=== PATIENT | male | born 1995 | race Caucasian/White ===

== ENCOUNTER 2024-05-10 19:06 | Emergency (ER) | payer OTHER ==
[~2024-05-10] VITALS: Ht 180.3 cm; Wt 113.4 kg
[2024-05-10] MEDS ORDERED: BENZONATATE 100 MG CAPSULE PO ONE (20:46)
[2024-05-10] MEDS: BENZONATATE 100 MG CAPSULE PO PRN (20:46)
[2024-05-10] MEDS ORDERED: IBUPROFEN 400 MG TABLET ONE (20:46)
[2024-05-10] MEDS: IBUPROFEN 400 MG TABLET PO ONE (20:46)
[2024-05-10] MEDS ORDERED: PRED50TA PO (21:00)
[2024-05-10] MEDS ORDERED: predniSONE 20 MG TABLET ONE (21:04)
[2024-05-10] MEDS: predniSONE 50 MG TABLET PO ONE (21:05)
[2024-05-10 21:14] VITALS: BP 124/79; TEMP 99.1; O2SAT 100
== END 2024-05-10 21:14 | disposition home or self-care (01) ==
LOC: ER 19:11
DX: R05.9 Cough, unspecified (principal); J45.909 Unspecified asthma, uncomplicated
CPT/HCPCS: 99284; 71045; J7512

== ENCOUNTER 2024-09-13 14:40 | Emergency (ER) | payer OTHER ==
[~2024-09-13] VITALS: Ht 180.3 cm; Wt 106.6 kg
[~2024-09-13 14:40] MED LIST: PRED50TA PO
[2024-09-13 15:02] VITALS: TEMP 97.9
[2024-09-13 15:32] LABS: BASOPHILS # (AUTO) 0.1 K/uL (0.0-0.2); BASOPHILS % (AUTO) 1.1 % (0.0-2.0); EOSINOPHILS # (AUTO) 0.1 K/uL (0.0-0.7); EOSINOPHILS % (AUTO) 2.1 % (0.0-6.0); HEMATOCRIT 47 % (39-51); HEMOGLOBIN 16.7 g/dL (13.5-17.5); LYMPHOCYTES # (AUTO) 2.2 K/uL (0.8-4.8); MEAN CORPUSCULAR HEMOGLOBIN 31 PG (26.0-33.0); MEAN CORPUSCULAR HGB CONC 35 g/dl (31.0-36.0); MEAN CORPUSCULAR VOLUME 87 fL (80-96); MONOCYTES # (AUTO) 0.5 K/uL (0.1-1.30); MONOCYTES % (AUTO) 7.2 % (2.0-12.0); NEUTROPHILS # (AUTO) 3.5 K/uL (1.8-8.9); NEUTROPHILS % (AUTO) 55.6 % (43.0-81.0); PLATELET COUNT (AUTO) 177 K/uL (150-450); RED BLOOD CELL COUNT(AUTO) 5.44 MIL/uL (4.5-6.0); RED CELL DISTRIBUTION WIDTH 13.1 % (11.5-15.0); WHITE BLOOD COUNT (AUTO) 6.3 K/uL (4.3-11.0)
[2024-09-13 15:37] LABS: CALCIUM, SERUM 9.2 mg/dL (8.5-10.1); CARBON DIOXIDE 25 mmol/L (21-32); CHLORIDE 104 mmol/L (98-107); CREATININE 1.1 mg/dL (0.6-1.3); GLUCOSE 86 mg/dL (74-106); POTASSIUM 3.7 mmol/L (3.5-5.1); SODIUM SERUM 137 mmol/L (136-145); UREA NITROGEN, BLOOD 8 mg/dL (7-18)
[2024-09-13 16:46] VITALS: BP 110/75; O2SAT 99
== END 2024-09-13 16:43 | disposition home or self-care (01) ==
LOC: ER 14:43
DX: R07.89 Other chest pain (principal); R06.02 Shortness of breath; J45.901 Unspecified asthma with (acute) exacerbation; I71.00 Dissection of unspecified site of aorta; Z79.52 Long term (current) use of systemic steroids
CPT/HCPCS: 36415; 71045-TC; 80048-TC; 84484-TC; 85025-TC